=== PATIENT | female | born 1945 | race Caucasian/White ===

== ENCOUNTER 2017-12-14 17:23 | Emergency (ER) | payer MEDICARE, OTHER ==
[2017-12-14 19:17] LABS: ABS Basophils 0 10^3/ul (0-0.2); ABS Eosinophils 0 10^3/ul (0-0.6); ABS Lymphocytes 0.5 10^3/ul (1.0-4.8); ABS Monocytes 0 10^3/ul (0-0.8); ABS Neutrophils 1.3 10^3/ul (1.5-7.7); ABS Nucleated RBC 0 10^3/ul; Eosinophil % 1.1 % (0-6); Hematocrit 24 % (35-47); Hemoglobin 8.4 g/dl (12.0-16.0); Lymphocyte % 28.1 % (25-47); Mean Corpuscular HGB Conc 35 g/dl (31-36); Mean Corpuscular Hemoglobin 33 pg (27-31); Mean Corpuscular Volume 95 fL (80-97); Mean Platelet Volume 8 um3 (7.4-10.4); Nucleated Red Blood Cells % 0; Platelet Count 101 10^3/ul (150-450); Red Blood Count 2.52 10^6/ul (4.0-5.4); Red Cell Distribution Width 15 % (10.5-15); White Blood Count 1.9 10^3/ul (3.5-10.8)
--- NOTE | 2017-12-14 19:22 | RAD ---
Indication: Fever. Single frontal view of the chest performed at 1909 hours was reviewed. Comparison is made with previous exam dated November 11, 2016. No mediastinal shift is noted. Heart is of normal size and configuration. Lung maza appear clear. IMPRESSION: NO ACTIVE CARDIOPULMONARY DISEASE IS NOTED.
[2017-12-14 19:31] LABS: EGFR Non-African American 91.7 (>60)
[2017-12-14 20:10] LABS: Urine Appearance Clear; Urine Blood Negative (Negative); Urine Color Yellow; Urine Ketones Negative (Negative); Urine Protein Negative (Negative); Urine Specific Gravity 1.012 (1.010-1.030); Urine Urobilinogen Negative (Negative)
[2017-12-14] MEDS ORDERED: Heparin 2 UNITS/ML IVPREMIX* 1 ML in NS 0.9% 50 ML* 1 ML IV SCH (22:00)
[2017-12-14 22:22] VITALS: BP 115/63
--- NOTE | 2017-12-14 22:51 | ED ---
Yessica Moreau Jason, scribed for Rey San MD on 12/14/17 at 1903 . HPI Febrile Illness - HPI Summary HPI Summary: This patient is a 71 year old F presenting to [facility] accompanied by with a chief complaint of fever since today. The patient states that her temperature arose to 100.9 degrees and since she is on chemotherapy for pancreatic cancer she was advised by her Oncologist on-call to go to the ED. Patient reports mild CONNOR, nasal discharge, and sinus congestion. Patient denies vomiting, urinary sx, cough, or sick contacts.. - History of Current Complaint Chief Complaint: EDFever Time Seen by Provider: 12/14/17 18:29 Hx Obtained From: Patient Onset/Duration: Still Present Timing: Constant Initial Severity: Mild Current Severity: None Pain Intensity: 0 Pain Scale Used: 0-10 Numeric Aggravating Factors: Nothing Alleviating Factors: Nothing Associated Signs and Symptoms: Negative, Other: - Patient reports mild CONNOR, nasal discharge, and sinus congestion. Patient denies vomiting, and urinary sx. - Risk Factors Serious Bacterial Infection Risk Factors: Chemotherapy - Additional Pertinent History Primary Care Physician: [id number] - Allergy/Home Medications Allergies/Adverse Reactions: Allergies Allergy/AdvReac Type Severity Reaction Status Date / Time No Known Allergies Allergy Verified 09/14/17 10:40 PMH/Surg Hx/FS Hx/Imm Hx Previously Healthy: No Endocrine/Hematology History: Denies: Hx Diabetes Cardiovascular History: Denies: Hx Hypertension GI History: Reports: Other GI Disorders - Pancreatic Cancer History: Denies: Hx Dialysis, Hx Renal Disease Sensory History: Reports: Hx Contacts or Glasses Opthamlomology History: Reports: Hx Contacts or Glasses - Cancer History Cancer Type, Location and Year: pancreatic - Surgical History Surgery Procedure, Year, and Place: Right ovary removed Infectious Disease History: No Infectious Disease History: Denies: Traveled Outside the [place] in Last 30 Days - Family History Known Family History: Positive: Diabetes - II Negative: Cardiac Disease - Social History Occupation: Works From/At Home Lives: With Family Alcohol Use: None Substance Use Type: Reports: None Smoking Status (MU): Never Smoked Tobacco Review of Systems Positive: Fever - 100.9 today, Other - pancreatic cancer Positive: Nasal Discharge, Other - sinus congestion Negative: Vomiting Positive: no symptoms reported Positive: Headache - mild All Other Systems Reviewed And Are Negative: Yes Physical Exam - Summary Physical Exam Summary: Appearance: Well-appearing, no distress, Well-nourished Skin: Warm, color reflects adequate perfusion Head: Normal Head/Face inspection Eyes: Conjunctiva clear ENT: Normal inspection Neck: Supple, no nodes, no JVD. Respiratory: Lungs clear, Normal breath sounds, no respiratory distress Cardio: RRR, No murmur, pulses normal, brisk capillary refill Abdomen: soft, nontender, no guarding, no rebound Bowel sounds: present Musculoskeletal: Strength Intact/ ROM intact. No calf tenderness. No edema. Neuro: Alert, muscle tone normal, facial symmetry, speech normal, sensory/motor intact Psychological: Normal Triage Information Reviewed: Yes Vital Signs On Initial Exam: Initial Vitals Temp Pulse Resp BP Pulse Ox 99 F 99 18 134/74 99 12/14/17 17:28 12/14/17 17:28 12/14/17 17:28 12/14/17 17:28 12/14/17 17:28 Vital Signs Reviewed: Yes Appearance: Positive: Well-Appearing Skin: Positive: Warm, Dry Diagnostics - Vital Signs Vital Signs Temp Pulse Resp BP Pulse Ox 12/14/17 18:30 89 119/57 99 12/14/17 18:00 93 118/59 99 12/14/17 17:47 102 99 12/14/17 17:46 119/56 12/14/17 17:28 99 F 99 18 134/74 99 - Laboratory Lab Results: Lab Results 12/14/17 12/14/17 12/14/17 Range/Units 19:02 19:02 19:02 WBC 1.9 L (3.5-10.8) 10^3/ul RBC 2.52 L (4.0-5.4) 10^6/ul Hgb 8.4 L (12.0-16.0) g/dl Hct 24 L (35-47) % MCV 95 (80-97) fL MCH 33 H (27-31) pg MCHC 35 (31-36) g/dl RDW 15 (10.5-15) % Plt Count 101 L (150-450) 10^3/ul MPV 8 (7.4-10.4) um3 Neut % (Auto) 67.8 (38-83) % Lymph % (Auto) 28.1 (25-47) % Lee % (Auto) 2.6 (1-9) % Eos % (Auto) 1.1 (0-6) % Baso % (Auto) 0.4 (0-2) % Absolute Neuts (auto) 1.3 L (1.5-7.7) 10^3/ul Absolute Lymphs (auto) 0.5 L (1.0-4.8) 10^3/ul Absolute Monos (auto) 0 (0-0.8) 10^3/ul Absolute Eos (auto) 0 (0-0.6) 10^3/ul Absolute Basos (auto) 0 (0-0.2) 10^3/ul Absolute Nucleated RBC 0 10^3/ul Nucleated RBC % 0 Sodium 135 (133-145) mmol/L Potassium 3.9 (3.5-5.0) mmol/L Chloride 103 (101-111) mmol/L Carbon Dioxide 26 (22-32) mmol/L Anion Gap 6 (2-11) mmol/L BUN 17 (6-24) mg/dL Creatinine 0.64 (0.51-0.95) mg/dL Est GFR ( Amer) 118.0 (>60) Est GFR (Non-Af Amer) 91.7 (>60) BUN/Creatinine Ratio 26.6 H (8-20) Glucose 143 H (70-100) mg/dL Lactic Acid 0.5 (0.5-2.0) mmol/L Calcium 8.3 L (8.6-10.3) mg/dL Total Bilirubin 1.00 (0.2-1.0) mg/dL AST 21 (13-39) U/L ALT 22 (7-52) U/L Alkaline Phosphatase 168 H (34-104) U/L Total Protein 5.3 L (6.4-8.9) g/dL Albumin 3.3 (3.2-5.2) g/dL Globulin 2.0 (2-4) g/dL Albumin/Globulin Ratio 1.7 (1-3) Urine Color Urine Appearance Urine pH (5-9) Ur Specific [place] (1.010-1.030) Urine Protein (Negative) Urine Ketones (Negative) Urine Blood (Negative) Urine Nitrate (Negative) Urine Bilirubin (Negative) Urine Urobilinogen (Negative) Ur Leukocyte Esterase (Negative) Urine WBC (Auto) (Absent) Urine RBC (Auto) (Absent) Ur Squamous Epith Cells (Absent) Urine Bacteria (Absent) Urine Glucose (Negative) Influenza A (Rapid) (Negative) Influenza B (Rapid) (Negative) 12/14/17 12/14/17 Range/Units 19:18 19:50 WBC (3.5-10.8) 10^3/ul RBC (4.0-5.4) 10^6/ul Hgb (12.0-16.0) g/dl Hct (35-47) % MCV (80-97) fL MCH (27-31) pg MCHC (31-36) g/dl RDW (10.5-15) % Plt Count (150-450) 10^3/ul MPV (7.4-10.4) um3 Neut % (Auto) (38-83) % Lymph % (Auto) (25-47) % Lee % (Auto) (1-9) % Eos % (Auto) (0-6) % Baso % (Auto) (0-2) % Absolute Neuts (auto) (1.5-7.7) 10^3/ul Absolute Lymphs (auto) (1.0-4.8) 10^3/ul Absolute Monos (auto) (0-0.8) 10^3/ul Absolute Eos (auto) (0-0.6) 10^3/ul Absolute Basos (auto) (0-0.2) 10^3/ul Absolute Nucleated RBC 10^3/ul Nucleated RBC % Sodium (133-145) mmol/L Potassium (3.5-5.0) mmol/L Chloride (101-111) mmol/L Carbon Dioxide (22-32) mmol/L Anion Gap (2-11) mmol/L BUN (6-24) mg/dL Creatinine (0.51-0.95) mg/dL Est GFR ( Amer) (>60) Est GFR (Non-Af Amer) (>60) BUN/Creatinine Ratio (8-20) Glucose (70-100) mg/dL Lactic Acid (0.5-2.0) mmol/L Calcium (8.6-10.3) mg/dL Total Bilirubin (0.2-1.0) mg/dL AST (13-39) U/L ALT (7-52) U/L Alkaline Phosphatase (34-104) U/L Total Protein (6.4-8.9) g/dL Albumin (3.2-5.2) g/dL Globulin (2-4) g/dL Albumin/Globulin Ratio (1-3) Urine Color Yellow Urine Appearance Clear Urine pH 7.0 (5-9) Ur Specific [place] 1.012 (1.010-1.030) Urine Protein Negative (Negative) Urine Ketones Negative (Negative) Urine Blood Negative (Negative) Urine Nitrate Negative (Negative) Urine Bilirubin Negative (Negative) Urine Urobilinogen Negative (Negative) Ur Leukocyte Esterase 2+ H (Negative) Urine WBC (Auto) 2+(11-20/hpf) H (Absent) Urine RBC (Auto) Trace(0-2/hpf) (Absent) Ur Squamous Epith Cells Present H (Absent) Urine Bacteria Absent (Absent) Urine Glucose Negative (Negative) Influenza A (Rapid) Negative (Negative) Influenza B (Rapid) Negative (Negative) Result Diagrams: 12/14/17 19:02 12/14/17 19:02 Lab Statement: Any lab studies that have been ordered have been reviewed, and results considered in the medical decision making process. - Radiology CXR Radiology Interpretation Completed By: Radiologist - CXR reveals, per radiologist, NO ACTIVE CARDIOPULMONARY DISEASE IS NOTED. ED physician has reviewed this radiology report. Course/Dx - Course Course Of Treatment: Pt afebrile with no antipyretics given. Pt's absolute neutrophil count is 1.3. CXR reveals, per radiologist, NO ACTIVE CARDIOPULMONARY DISEASE IS NOTED. Influenza A and B test is negative. Assessment/Plan: We discussed patient care with Dr. Verma (oncologist) and they recommended the patient be discharged. Patient will be discharged and follow up from Dr. Ross (oncologist). The patient is agreeable with this plan. - Febrile Illness Differential Diagnoses: Bacteremia, Pneumonia, Sepsis, Viremia - Diagnoses Provider Diagnoses: Viral illness - Provider Notifications Discussed Care Of Patient With: Eliceo Verma - Oncologist Time Discussed With Above Provider: 21:20 Instructed by Provider To: Other - Discharge patient home if she is stable. Discharge - Discharge Plan Condition: Good Disposition: HOME Patient Education Materials: Viral Syndrome (ED) Referrals: No Primary Care Phys,NOPCP [Primary Care Provider] - Mulugeta Ross MD [Medical Doctor] - 3 Days The documentation as recorded by the Yessica garcia Jason accurately reflects the service I personally performed and the decisions made by me, Rey San MD.
== END 2017-12-14 22:31 | disposition home or self-care (01) ==
LOC: ED 17:23
DX: B34.9 Viral infection, unspecified (principal); C25.9 Malignant neoplasm of pancreas, unspecified
CPT/HCPCS: 36415; 71045; 80053; 81003; 81015; 83605; 85025; 87040; 87086; 87502; 99284; J1642

== ENCOUNTER 2018-01-15 21:10 | Inpatient (IN) | payer MEDICARE, OTHER ==
[2018-01-15] MEDS ORDERED: NS 0.9% 1000 ML* 1,000 ML IV ONE (22:34)
[2018-01-15] MEDS ORDERED: Acetaminophen TAB* 325 MG PO ONE (22:34)
[2018-01-15] MEDS ORDERED: Acetaminophen TAB* 325 MG ONE (23:07)
[2018-01-16 00:04] LABS: ABS Neutrophils 0.5 10^3/ul (1.5-7.7)
[2018-01-16 00:07] LABS: EGFR Non-African American 67.8 (>60)
[2018-01-16 00:30] LABS: ABS Basophils 0 10^3/ul (0-0.2); ABS Eosinophils 0 10^3/ul (0-0.6); ABS Lymphocytes 0.7 10^3/ul (1.0-4.8); ABS Monocytes 0.1 10^3/ul (0-0.8); ABS Nucleated RBC 0 10^3/ul; Eosinophil % 1.3 % (0-6); Hematocrit 27 % (35-47); Hemoglobin 9.3 g/dl (12.0-16.0); Lymphocyte % 54.9 % (25-47); Mean Corpuscular HGB Conc 35 g/dl (31-36); Mean Corpuscular Hemoglobin 33 pg (27-31); Mean Corpuscular Volume 94 fL (80-97); Mean Platelet Volume 8 um3 (7.4-10.4); Nucleated Red Blood Cells % 0; Platelet Count 69 10^3/ul (150-450); Red Blood Count 2.85 10^6/ul (4.0-5.4); Red Cell Distribution Width 14 % (10.5-15); White Blood Count 1.4 10^3/ul (3.5-10.8)
[2018-01-16 00:34] LABS: INR 1.01 (0.77-1.02)
[2018-01-16] MEDS ORDERED: Piperacillin/Tazobac ADVAN(*) 3.375 GM in NS 0.9% 100 ML* 100 ML IVPB ONE (00:35)
[2018-01-16] MEDS ORDERED: Vancomycin(*) 1,000 MG in NS 0.9% 250 ML* 250 ML IVPB ONE (00:35)
[2018-01-16] MEDS ORDERED: Acetaminophen TAB* 325 MG PO PRN (00:51)
[2018-01-16] MEDS ORDERED: Melatonin (NF) 3 MG TAB PO PRN (00:51)
[2018-01-16] MEDS ORDERED: traMADol TAB* 50 MG PO PRN (00:52)
[2018-01-16] MEDS ORDERED: Ondansetron INJ* 2 MG/ML VIAL IV PRN (00:52)
--- NOTE | 2018-01-16 00:58 | ED ---
Sanjuana Moreau Edward, scribed for Yuri Harris MD on 01/15/18 at 2225 . HPI Febrile Illness - HPI Summary HPI Summary: 72 y/o female presents to the ED c/o fever at around 16:00 today, high of 101.5 at around 17:30 this afternoon. Denies nausea. Associated sx: one side of nostril "plugged" but pt states she gets blood clots often, sinus pressure. PMHx pancreatic CA dx March 2016, currently on chemo. Pt sent to ED by Dr. Ross. Sx stent put in, ovarian removal. - History of Current Complaint Chief Complaint: EDFever Time Seen by Provider: 01/15/18 22:23 Hx Obtained From: Patient Onset/Duration: Started Hours Ago Timing: Constant Pain Intensity: 0 Aggravating Factors: Nothing Alleviating Factors: Nothing Associated Signs and Symptoms: Other: - sinus pressure - Additional Pertinent History Primary Care Physician: [id number] - Allergy/Home Medications Allergies/Adverse Reactions: Allergies Allergy/AdvReac Type Severity Reaction Status Date / Time No Known Allergies Allergy Verified 09/14/17 10:40 PMH/Surg Hx/FS Hx/Imm Hx Previously Healthy: No Endocrine/Hematology History: Denies: Hx Diabetes Cardiovascular History: Denies: Hx Hypertension GI History: Reports: Other GI Disorders - Pancreatic Cancer History: Denies: Hx Dialysis, Hx Renal Disease Sensory History: Reports: Hx Contacts or Glasses Opthamlomology History: Reports: Hx Contacts or Glasses - Cancer History Cancer Type, Location and Year: pancreatic and ovarian, dx March 2016 - Surgical History Surgery Procedure, Year, and Place: Right ovary removed Infectious Disease History: No Infectious Disease History: Denies: Traveled Outside the [place] in Last 30 Days - Family History Known Family History: Positive: Diabetes - II Negative: Cardiac Disease - Social History Alcohol Use: None Hx Substance Use: No Substance Use Type: Reports: None Hx Tobacco Use: No Smoking Status (MU): Never Smoked Tobacco Review of Systems Positive: Fever Eyes: Negative ENT: Other - sinus pressure Cardiovascular: Negative Respiratory: Negative Gastrointestinal: Negative Genitourinary: Negative Musculoskeletal: Negative Skin: Negative Neurological: Negative Psychological: Normal All Other Systems Reviewed And Are Negative: Yes Physical Exam - Summary Physical Exam Summary: VITAL SIGNS: Reviewed. GENERAL: Patient is a well-developed and nourished female who is lying comfortable in the stretcher. Patient is not in any acute respiratory distress. HEAD AND FACE: No signs of trauma. No ecchymosis, hematomas or skull depressions. No sinus tenderness. EYES: PERRLA, EOMI x 2, No injected conjunctiva, no nystagmus. EARS: Hearing grossly intact. Ear canals and tympanic membranes are within normal limits. MOUTH: Oropharynx within normal limits. NECK: Supple, trachea is midline, no adenopathy, no JVD, no carotid bruit, no c- spine tenderness, neck with full ROM. CHEST: Symmetric, no tenderness at palpation LUNGS: Clear to auscultation bilaterally. No wheezing or crackles. CVS: Tachycardic, S1 and S2 present, no murmurs or gallops appreciated. ABDOMEN: Soft, non-tender. No signs of distention. No rebound no guarding, and no masses palpated. Bowel sounds are normal. EXTREMITIES: FROM in all major joints, no edema, no cyanosis or clubbing. NEURO: Alert and oriented x 3. No acute neurological deficits. Speech is normal and follows commands. SKIN: Dry and warm Triage Information Reviewed: Yes Vital Signs On Initial Exam: Initial Vitals Temp Pulse Resp BP Pulse Ox 99.5 F 131 16 115/76 98 01/15/18 21:17 01/15/18 21:17 01/15/18 21:17 01/15/18 21:17 01/15/18 21:17 Vital Signs Reviewed: Yes Diagnostics - Vital Signs Vital Signs Temp Pulse Resp BP Pulse Ox 01/15/18 22:24 99.3 F 01/15/18 21:17 99.5 F 131 16 115/76 98 - Laboratory Result Diagrams: 01/15/18 23:42 01/15/18 23:23 Lab Statement: Any lab studies that have been ordered have been reviewed, and results considered in the medical decision making process. - Radiology CXR Xray Interpretation: No Acute Changes Radiology Interpretation Completed By: ED Physician Re-Evaluation - Re-Evaluation 1 Re-Evaluation Time: 00:44 Comment: Discuss test results, plan of care Course/Dx - Course Assessment/Plan: WBC 1.4 L, Absolute Neutrophils 0.5 L. INFLUENZA A AND B NEGATIVE. CXR negative. Spoke with Dr. Montes who will admit the pt to [facility]. Pt agrees with plan. - Diagnoses Provider Diagnoses: Neutropenic fever - Provider Notifications Discussed Care Of Patient With: Onesimo Montes Time Discussed With Above Provider: 00:45 Instructed by Provider To: Admit As Inpatient Discharge - Discharge Plan Condition: Stable Disposition: ADMITTED TO [facility] Referrals: No Primary Care Phys,NOPCP [Primary Care Provider] - The documentation as recorded by the Sanjuana garcia Edward accurately reflects the service I personally performed and the decisions made by me, Yuri Harris MD.
[2018-01-16 01:13] LABS: Urine Appearance Clear; Urine Blood Negative (Negative); Urine Color Yellow; Urine Ketones Negative (Negative); Urine Protein Negative (Negative); Urine Urobilinogen Negative (Negative)
[2018-01-16] MEDS ORDERED: NS 0.9% 250 ML* 250 ML ONE (01:15)
[2018-01-16] MEDS: Cefepime 2 GM in Dextrose(*) 2 GM/50 ML BAG IV SCH ×3 (01:25→16:22)
[2018-01-16] MEDS: NS 0.9% 1000 ML* 1,000 ML IV SCH ×3 (02:07→20:47)
[2018-01-16] MEDS: Omeprazole CAP* 20 MG PO SCH (04:41)
--- NOTE | 2018-01-16 05:13 | HP ---
H&P (Free Text) History and Physical: PCP: Gisell Ross MD Date/Time: 01/16/2018 0045 CC: fever HPI: Mrs Lazcano is a 72YO female HX of pancreatic CA on treatment with gemcitabine & abraxane last give Tuesday01/09/2018. She awoke Tuesday AM with increased fatigue which persisted throughout the day, developing a fever of 101F around 1600 for which she called her oncologist who advised evaluation in the ED. She has some mild head congestion, but denies exacerbating or alleviating factors, chills, sweats, N/V, diarrhea, cough, chest congestion, headache, sore throat, earache, abdominal pain, B/U/F of urine, flank pain, chest pain, rash, open wound, or other issues. Her who is a physician's assistant commissioner heard a slight wheeze in her lung this AM which had resolved by afternoon. ED evaluation reveals neutropenia with an ANC of 0.5. She was given IV vancomycin in the ED and was ordered piperacillin/tazobactam which I D/C'd in preference of cefepime 2gm IV Q8H. She will be gonzalez-cultured and placed on neutropenic precautions. PMedHx pancreatic CA on treatment with gemcitabine & abraxane last give 01/09/2018 GERD Ambulatory Orders Metoclopramide TAB* [Reglan TAB*] 10 mg PO Q6H PRN 11/07/16 Omeprazole CAP* [Prilosec CAP* 20 MG] 20 mg PO DAILY 11/07/16 Levofloxacin TAB* [Levaquin TAB*] 750 mg PO DAILY #10 tab 11/11/16 Loperamide CAP* [Imodium CAP*] 2 mg PO .SEE DIRECTIONS PRN #0 cap 11/11/16 Potassium Chlor TAB* [Potassium Chlor TAB 20 MEQ*] 40 meq PO DAILY #60 tab.er Magnesium Oxide TAB* [MagOx 400 TAB*] 400 mg PO BID 01/16/18 Allergies No Known Allergies Allergy (Verified 09/14/17 10:40) PSurgHx R oophorectomy port placement biliary stent placement SocHx: no tobacco, alcohol, or recreational drugs; volunteer with [employer]; , lives with her ; full code status FamHx: Mother: age 88 2nd leukemia; Father passed at 75 of unknown cause. ROS: as above, otherwise reviewed and all were negative vitals: Vital Signs Temp 36.8 C 01/16/18 02:24 Pulse 92 01/16/18 02:24 Resp 16 01/16/18 02:26 BP 121/78 01/16/18 02:24 Pulse Ox 100 01/16/18 02:24 Intake & Output 01/15/18 01/15/18 01/16/18 11:59 23:59 11:59 Intake Total 1000 0 Balance 1000 0 Weight 62.142 kg 61.87 kg Intake: IV Fluids 1000 Oral 0 Constitutional: NAD, normally developed, well-nourished elderly white female HEENM: atraumatic; sclera/conjunctiva: anicteric/clear; hearing: clinically intact; oropharynx: clear, mucosa moist Neck: soft tissue: no nuchal rigidity; thyroid: normal Pulmonary: clear to auscultation bilaterally, good aeration, no accessory muscle use CV: RR/RR, normal S1S2, no carotid bruit, no jugular venous distention, 2+ B DP/ PT, no edema Abdominal: soft, non-distended, non-tender, no rebound/guarding/rigidity, normoactive bowel sounds, no hepatosplenomegaly or masses, no costovertebral angle tenderness Musculoskeletal: general: grossly intact, no tenderness to palpation Integumental: normal appearance and texture of exposed skin Psychiatric orientation: AA&O to PPS affect: calm mood: cooperative/pleasant eye contact: good content: reliable responses: timely insight: good Testing: Lab Results 01/15/18 01/15/18 01/15/18 Range/Units 23:23 23:23 23:42 WBC 1.4 L (3.5-10.8) 10^3/ul RBC 2.85 L (4.0-5.4) 10^6/ul Hgb 9.3 L (12.0-16.0) g/dl Hct 27 L (35-47) % MCV 94 (80-97) fL MCH 33 H (27-31) pg MCHC 35 (31-36) g/dl RDW 14 (10.5-15) % Plt Count 69 L (150-450) 10^3/ul MPV 8 (7.4-10.4) um3 Neut % (Auto) 36.2 L (38-83) % Lymph % (Auto) 54.9 H (25-47) % [place] % (Auto) 6.3 (0-7) % Eos % (Auto) 1.3 (0-6) % Baso % (Auto) 1.3 (0-2) % Absolute Neuts (auto) 0.5 L* (1.5-7.7) 10^3/ul Absolute Lymphs (auto) 0.7 L (1.0-4.8) 10^3/ul Absolute Monos (auto) 0.1 (0-0.8) 10^3/ul Absolute Eos (auto) 0 (0-0.6) 10^3/ul Absolute Basos (auto) 0 (0-0.2) 10^3/ul Absolute Nucleated RBC 0 10^3/ul Nucleated RBC % 0 INR (Anticoag Therapy) 1.01 (0.77-1.02) APTT 36.2 (26.0-36.3) seconds Sodium 130 L (133-145) mmol/L Potassium 3.9 (3.5-5.0) mmol/L Chloride 99 L (101-111) mmol/L Carbon Dioxide 25 (22-32) mmol/L Anion Gap 6 (2-11) mmol/L BUN 26 H (6-24) mg/dL Creatinine 0.83 (0.51-0.95) mg/dL Est GFR ( Amer) 87.2 (>60) Est GFR (Non-Af Amer) 67.8 (>60) BUN/Creatinine Ratio 31.3 H (8-20) Glucose 192 H (70-100) mg/dL Lactic Acid (0.5-2.0) mmol/L Calcium 9.3 (8.6-10.3) mg/dL Total Bilirubin 0.90 (0.2-1.0) mg/dL AST 21 (13-39) U/L ALT 24 (7-52) U/L Alkaline Phosphatase 185 H (34-104) U/L Total Protein 6.1 L (6.4-8.9) g/dL Albumin 3.7 (3.2-5.2) g/dL Globulin 2.4 (2-4) g/dL Albumin/Globulin Ratio 1.5 (1-3) Urine Color Urine Appearance Urine pH (5-9) Ur Specific [place] (1.010-1.030) Urine Protein (Negative) Urine Ketones (Negative) Urine Blood (Negative) Urine Nitrate (Negative) Urine Bilirubin (Negative) Urine Urobilinogen (Negative) Ur Leukocyte Esterase (Negative) Urine Glucose (Negative) Urine Ascorbic Acid (Negative) Influenza A (Rapid) (Negative) Influenza B (Rapid) (Negative) 01/15/18 01/15/18 01/16/18 Range/Units 23:42 23:53 00:43 WBC (3.5-10.8) 10^3/ul RBC (4.0-5.4) 10^6/ul Hgb (12.0-16.0) g/dl Hct (35-47) % MCV (80-97) fL MCH (27-31) pg MCHC (31-36) g/dl RDW (10.5-15) % Plt Count (150-450) 10^3/ul MPV (7.4-10.4) um3 Neut % (Auto) (38-83) % Lymph % (Auto) (25-47) % [place] % (Auto) (0-7) % Eos % (Auto) (0-6) % Baso % (Auto) (0-2) % Absolute Neuts (auto) (1.5-7.7) 10^3/ul Absolute Lymphs (auto) (1.0-4.8) 10^3/ul Absolute Monos (auto) (0-0.8) 10^3/ul Absolute Eos (auto) (0-0.6) 10^3/ul Absolute Basos (auto) (0-0.2) 10^3/ul Absolute Nucleated RBC 10^3/ul Nucleated RBC % INR (Anticoag Therapy) (0.77-1.02) APTT (26.0-36.3) seconds Sodium (133-145) mmol/L Potassium (3.5-5.0) mmol/L Chloride (101-111) mmol/L Carbon Dioxide (22-32) mmol/L Anion Gap (2-11) mmol/L BUN (6-24) mg/dL Creatinine (0.51-0.95) mg/dL Est GFR ( Amer) (>60) Est GFR (Non-Af Amer) (>60) BUN/Creatinine Ratio (8-20) Glucose (70-100) mg/dL Lactic Acid 0.8 (0.5-2.0) mmol/L Calcium (8.6-10.3) mg/dL Total Bilirubin (0.2-1.0) mg/dL AST (13-39) U/L ALT (7-52) U/L Alkaline Phosphatase (34-104) U/L Total Protein (6.4-8.9) g/dL Albumin (3.2-5.2) g/dL Globulin (2-4) g/dL Albumin/Globulin Ratio (1-3) Urine Color Yellow Urine Appearance Clear Urine pH 5.0 (5-9) Ur Specific [place] 1.020 (1.010-1.030) Urine Protein Negative (Negative) Urine Ketones Negative (Negative) Urine Blood Negative (Negative) Urine Nitrate Negative (Negative) Urine Bilirubin Negative (Negative) Urine Urobilinogen Negative (Negative) Ur Leukocyte Esterase Negative (Negative) Urine Glucose Negative (Negative) Urine Ascorbic Acid * H (Negative) Influenza A (Rapid) Negative (Negative) Influenza B (Rapid) Negative (Negative) CXR, personally reviewed: no acute process, port L chest Impression: 72F HX pancreatic CA on treatment with gemcitabine & abraxane last give Tuesday01/09/2018 presents with neutropenic fever DIAGNOSIS & PLAN Primary neutropenic fever : blood, sputum, & urine CXs : IVFs : cefepime 2gm IV Q8H : neutropenic precautions : supportive care Secondary pancreatic CA : continue management per oncology Admission Rational: inpatient for neutropenic fever at very high risk of morbidity/mortality; inappropriate for outpatient setting DVTp: SCDs & heparin SQ Code Status: full HCP:
[2018-01-16 05:17] LABS: EGFR Non-African American 79.9 (>60)
[2018-01-16 05:49] LABS: ABS Basophils 0 10^3/ul (0-0.2); ABS Eosinophils 0 10^3/ul (0-0.6); ABS Monocytes 0.1 10^3/ul (0-0.8); ABS Neutrophils 0.4 10^3/ul (1.5-7.7); ABS Nucleated RBC 0 10^3/ul; Eosinophil % 1.1 % (0-6); Hematocrit 24 % (35-47); Hemoglobin 8.4 g/dl (12.0-16.0); Lymphocyte % 64.9 % (25-47); Mean Corpuscular HGB Conc 35 g/dl (31-36); Mean Corpuscular Hemoglobin 32 pg (27-31); Mean Corpuscular Volume 94 fL (80-97); Mean Platelet Volume 8 um3 (7.4-10.4); Nucleated Red Blood Cells % 0; Platelet Count 57 10^3/ul (150-450); Red Blood Count 2.58 10^6/ul (4.0-5.4); Red Cell Distribution Width 14 % (10.5-15); White Blood Count 1.6 10^3/ul (3.5-10.8)
--- NOTE | 2018-01-16 07:39 | RAD ---
INDICATION: Fever COMPARISON: Most recent comparison chest x-ray dated December 14, 2017 TECHNIQUE: Single AP portable view of the chest was obtained. FINDINGS: Image quality is compromised due to the relative inferiority of a portable chest x-ray. There is a left subclavian vein Mediport with the tip terminating at the upper portion of the superior vena cava. The heart and mediastinum exhibit normal size and contour. The lungs are grossly clear. There is no evidence of a large pleural effusion. Visualized bones are normal for the patient's age. IMPRESSION: 1. No radiographic evidence for acute cardiopulmonary abnormality on this portable chest x-ray. 2. The left subclavian vein Mediport terminates at the high superior vena cava. Please correlate to ability to aspirate and inject the Mediport clinically.
[2018-01-16] MEDS: Docusate CAP* 100 MG PO SCH ×2 (09:52→20:47)
--- NOTE | 2018-01-16 11:28 | PN ---
Progress Note - Progress Note Date of Service: 01/16/18 SOAP: Subjective: []She feels fine. No abdominal pain. Fever last night better. Has been tolerating therapy but with frequent does delays for low counts. No focal symptoms of infection. Acetaminophen (Tylenol Tab*) 650 mg PO Q6H PRN PRN Reason: FEVER/PAIN Docusate Sodium (Colace Cap*) 200 mg PO BID [facility] Last Admin: 01/16/18 09:52 Dose: 200 mg Heparin Sodium (Porcine) (Heparin Vial(*)) 5,000 units SUBCUT Q8HR [facility] Cefepime HCl (Maxipime 2 Gm In Dextrose Duplex (*)) 2 gm in 50 mls @ 100 mls/ hr IV Q8H [facility] Last Admin: 01/16/18 09:52 Dose: 100 mls/hr Sodium Chloride (Ns 0.9% 1000 Ml*) 1,000 mls @ 125 mls/hr IV PER RATE [facility] Last Admin: 01/16/18 09:53 Dose: 125 mls/hr Melatonin (Melatonin (Nf)) 3 mg PO BEDTIME PRN; Protocol PRN Reason: Sleep Omeprazole (Prilosec Cap*) 20 mg PO DAILY@0600 [facility] Last Admin: 01/16/18 04:41 Dose: 20 mg Ondansetron HCl (Zofran Inj*) 4 mg IV Q6H PRN PRN Reason: NAUSEA Tramadol HCl (Ultram*) 50 mg PO Q6H PRN PRN Reason: PAIN Objective: [] Vital Signs Temp Pulse Resp BP Pulse Ox 98.6 F 103 18 111/64 98 01/16/18 11:01 01/16/18 11:01 01/16/18 11:01 01/16/18 11:01 01/16/18 11:01 HEENT pale, no moral lesions, no dental disease CTA RRR S1S2 +BS, NT, ND and no masses Ext - Tr edema no skin lesions CXR and UA negative Flu negative BC not reported yet Assessment: []72 year old on second line therapy with Abraxane/Gemcitabine for metastatic pancreatic cancer. She has had frequent dose delays for cytopenias and no NF. Had been due today. Plan: []1. NF. Continue Cefepime and follow counts. Neupogen if not improving tomorrow. 2. Re-check CT scan and CA 27-29. If cancer stable or responding will continue chemotherapy on once every other week.
[2018-01-16] MEDS ORDERED: Iohexol 300* (CONTRAST) 10 ML SDV IV ONE (11:47)
--- NOTE | 2018-01-16 15:49 | RAD ---
INDICATION: Pancreatic and ovarian cancer. Neutropenic fever. COMPARISON: October 26, 2017 PET/CT. January 15, 2018 chest radiograph. September 14, 2017 CT. TECHNIQUE: Multidetector CT images were obtained from the lung apices to the ischial tuberosities with 83 mL Omnipaque 300 IV contrast. Oral contrast administered. CHEST REPORT: Minimal LEFT greater than RIGHT basilar atelectasis. No alveolar consolidation concerning for pneumonia or suspicious focal pulmonary lesions. Negative for pleural effusions. Negative for thoracic lymphadenopathy. Tip of LEFT chest port at level of superior vena cava. Negative for cardiomegaly. Physiologic small volume of pericardial fluid. Normal diameter thoracic aorta. Mild anterior compression deformity of the T10 vertebral body is chronic. Multiple osseous hemangiomas of the thoracic spine noted. No suspicious osseous lesions of the thorax evident. CHEST IMPRESSION: 1. No pulmonary inflammatory process evident. 2. No evidence for thoracic metastatic disease. ABDOMEN PELVIS REPORT: 2.5 cm AP by 3.9 cm transverse hypodense mass at the pancreatic body increased from 2.0 x 3.8 cm previously. Associated advanced atrophy of the pancreatic tail. Metallic biliary stent in place with associated pneumobilia. No conspicuous focal liver lesions evident. Mildly increased upper normal size spleen. 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 Normal opacification of the superior mesenteric, splenic, and portal veins. No CT abnormality of the upper GI, small bowel, appendix visualized medial to the cecum, or colon evident. Negative for ascites, free air, hernias. Normal adrenal glands. Symmetric nephrograms and pyelograms. No suspicious renal lesions or hydronephrosis. Unremarkable nondilated ureters and partially distended urinary bladder. Partially calcified fibroid at the LEFT uterine fundus. Unremarkable adnexal regions. Normal diameter abdominal aorta and iliac arteries with mild atherosclerotic plaque. Physiologic partial distention of the IVC. Negative for suspicious osseous lesions. ABDOMEN PELVIS IMPRESSION: 1. Mild interval enlargement of hypodense mass at the pancreatic body. Mild increase in intrahepatic biliary dilatation. Metallic biliary stent remains in place. 2. 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 Normal opacification of the superior mesenteric, splenic, and portal veins. 3. Negative for ascites. 4. Negative for lymphadenopathy.
[2018-01-17] MEDS: Cefepime 2 GM in Dextrose(*) 2 GM/50 ML BAG IV SCH ×2 (01:08→09:22)
[2018-01-17] MEDS: Omeprazole CAP* 20 MG PO SCH (05:48)
[2018-01-17] MEDS ORDERED: Heparin VIAL(*) 5000 UNITS/ML VIAL (FIVE THOUSAND) SUBCUT SCH (06:00)
[2018-01-17 06:11] LABS: ABS Basophils 0 10^3/ul (0-0.2); ABS Eosinophils 0.1 10^3/ul (0-0.6); ABS Lymphocytes 0.9 10^3/ul (1.0-4.8); ABS Monocytes 0.2 10^3/ul (0-0.8); ABS Neutrophils 0.4 10^3/ul (1.5-7.7); ABS Nucleated RBC 0 10^3/ul; Eosinophil % 3.8 % (0-6); Hematocrit 21 % (35-47); Hemoglobin 7.5 g/dl (12.0-16.0); Lymphocyte % 57.7 % (25-47); Mean Corpuscular HGB Conc 36 g/dl (31-36); Mean Corpuscular Hemoglobin 33 pg (27-31); Mean Corpuscular Volume 93 fL (80-97); Mean Platelet Volume 8 um3 (7.4-10.4); Nucleated Red Blood Cells % 0.2; Platelet Count 50 10^3/ul (150-450); Red Blood Count 2.25 10^6/ul (4.0-5.4); Red Cell Distribution Width 15 % (10.5-15); White Blood Count 1.5 10^3/ul (3.5-10.8)
[2018-01-17 06:14] LABS: EGFR Non-African American 89.9 (>60)
[2018-01-17] MEDS: Docusate CAP* 100 MG PO SCH (10:28)
[2018-01-17] MEDS: Spironolactone TAB* 25 MG PO SCH ×2 (11:37→20:01)
[2018-01-17] MEDS ORDERED: FILGRASTIM-SNDZ* 300 MCG/0.5 ML SYRINGE SUBCUT SCH (12:00)
[2018-01-17] MEDS ORDERED: FILGRASTIM-SNDZ* 480 MCG/0.8 ML SYRINGE SUBCUT SCH (12:00)
[2018-01-17] MEDS: NS 0.9% 50 ML* 50 ML with Cefepime(*) 2 GM IVPB SCH ×2 (16:05)
[2018-01-18] MEDS: NS 0.9% 50 ML* 50 ML with Cefepime(*) 2 GM IVPB SCH ×4 (00:33→08:53)
[2018-01-18] MEDS: Omeprazole CAP* 20 MG PO SCH (06:14)
[2018-01-18 07:01] LABS: Hematocrit 23 % (35-47); Hemoglobin 7.9 g/dl (12.0-16.0); Mean Corpuscular HGB Conc 35 g/dl (31-36); Mean Corpuscular Hemoglobin 33 pg (27-31); Mean Corpuscular Volume 94 fL (80-97); Mean Platelet Volume 9 um3 (7.4-10.4); Platelet Count 69 10^3/ul (150-450); Red Blood Count 2.43 10^6/ul (4.0-5.4); Red Cell Distribution Width 15 % (10.5-15); White Blood Count 3.7 10^3/ul (3.5-10.8)
[2018-01-18 07:02] LABS: ABS Basophils 0 10^3/ul (0-0.2); ABS Eosinophils 0.2 10^3/ul (0-0.6); ABS Lymphocytes 1.2 10^3/ul (1.0-4.8); ABS Monocytes 0.4 10^3/ul (0-0.8); ABS Nucleated RBC 0 10^3/ul; Eosinophil % 4.1 % (0-6); Lymphocyte % 31.2 % (25-47); Nucleated Red Blood Cells % 0.1
[2018-01-18] MEDS ORDERED: Loperamide CAP* 2 MG PO PRN (07:42)
[2018-01-18] MEDS ORDERED: Metoclopramide TAB* 10 MG PO PRN (07:42)
[2018-01-18] MEDS ORDERED: FILGRASTIM-SNDZ* 300 MCG/0.5 ML SYRINGE SUBCUT STA (07:42)
--- NOTE | 2018-01-18 07:53 | DS ---
- Discharge Summary ADMIT DATE: 01/15/18 DISCHARGE DATE: 01/18/18 DISCHARGE DIAGNOSIS: 1. neutropenic fever 2. metastatic pancreatic cancer DISCHARGE MEDICATIONS: Home Medications Medication Instructions Recorded Confirmed Type Metoclopramide TAB* [Reglan TAB*] 10 mg PO Q6H PRN 11/07/16 01/16/18 History Omeprazole CAP* [Prilosec CAP* 20 20 mg PO DAILY 11/07/16 01/16/18 History MG] Loperamide CAP* [Imodium CAP*] 2 mg PO .SEE DIRECTIONS PRN #0 cap 11/11/1601/16 Rx Magnesium Oxide TAB* [MagOx 400 400 mg PO BID 01/16/18 01/16/18 History TAB*] Spironolactone TAB* [Aldactone TAB 25 mg PO BID #60 tab 01/18/18 Rx 25 MG*] DISCHARGE FOLLOW UP: WE WILL CALL YOU WITH APPOINTMENT HOSPITAL COURSE: Please see full admit H+P, briefly 72 yo F w metastatic pancreatic cancer on palliative gemcitabine/abraxane, with frequent delays for counts, presenting with neutropenic fevers. She was treated with vanco/cefepime, and all cultures are negative to date. She is no longer neutropenic with the addition of neupogen and will get one more dose today prior to discharge. She will likely have chemotherapy on Tuesday but we will call her to confirm. Her CT scan showed essentially stable disease and her CA 19-9 is pending. >30 mins spent, >50% in face to face counseling
[2018-01-18] MEDS ORDERED: Omeprazole CAP* 20 MG PO SCH (09:00)
[2018-01-18] MEDS ORDERED: Magnesium Oxide TAB* 400 MG PO SCH (09:00)
[2018-01-18] MEDS ORDERED: Potassium Chlor TAB* 20 MEQ TAB.ER PO SCH ×2 (09:00)
[2018-01-18] MEDS: Spironolactone TAB* 25 MG PO SCH (09:15)
[2018-01-18 09:54] VITALS: BP 106/54
== END 2018-01-18 10:00 | disposition home or self-care (01) | DRG 809 ==
LOC: ED 21:10 → MED 01-16 00:48
PROVIDERS: ADMIT Hospitalist; ATTEND Internal Medicine Hematology & Oncology
DX: D70.9 Neutropenia, unspecified (principal); C25.9 Malignant neoplasm of pancreas, unspecified; C79.9 Secondary malignant neoplasm of unspecified site; R50.81 Fever presenting with conditions classified elsewhere; K21.9 Gastro-esophageal reflux disease without esophagitis; Z79.899 Other long term (current) drug therapy; Z80.6 Family history of leukemia
CPT/HCPCS: 36415; 71045; 71260; 74177; 80048; 80053; 81003; 83605; 85025; 85610; 85730; 86300; 86301; 87040; 87086; 87502; 99233; 99239; A9270-GY; J0692; J1642; J2543; J3370; Q5101 ZA; Q9967

== ENCOUNTER 2018-02-09 12:04 | Day surgery (SDC) | payer MEDICARE, OTHER ==
[~2018-02-09 12:04] MED LIST: Buffered Lidocaine 0.9% SYRIN* 5 ML/SYR SYRINGE INTRADERM ONE; DiMENhydriNATE IV* 50 MG/ML VIAL IV PUSH PRN; Famotidine IV* 10 MG/ML 2 ML (20 mg) IV ONE; Morphine INJ* 2 MG/ML 1 ML CARPUJECT IV PRN; Naloxone* 0.4 MG/ML 1 ML VIAL IV PRN; PROCHLORPERAZINE INJ 5 MG/ML 2 ML VIAL IV PRN; Scopolamine 1.5 mg* PATCH TRANSDERM PRN; fentaNYL* 50 MCG/ML 2 ML VIAL (100 MCG VIAL) IV PRN; oxyCODONE/Acetamin 5/325 MG* TAB PO PRN
[2018-02-09] MEDS ORDERED: Buffered Lidocaine 0.9% SYRIN* 5 ML/SYR SYRINGE ONE (12:17)
[2018-02-09] MEDS ORDERED: Famotidine IV* 10 MG/ML 2 ML (20 mg) ONE (12:17)
[2018-02-09] MEDS ORDERED: ceFAZolin 2 GM PREMIX (*) 2 GM/50 ML BAG IVPB ONE (12:17)
[2018-02-09] MEDS ORDERED: KETAMINE HCL* 50 MG/ML 10 ML VIAL ONE (12:32)
[2018-02-09] MEDS ORDERED: Midazolam* 1 MG/ML 5 ML VIAL (5 MG) ONE (12:32)
[2018-02-09] MEDS ORDERED: Atracurium* 10 MG/ML 10 ML VIAL ONE (12:32)
[2018-02-09] MEDS ORDERED: fentaNYL* 50 MCG/ML 2 ML VIAL (100 MCG VIAL) ONE ×2 (12:32→15:09)
[2018-02-09] MEDS ORDERED: Bupivacaine 0.25% SDV* 30 ML ONE (13:05)
[2018-02-09] MEDS ORDERED: Glycopyrrolate IV* 0.2 MG/ML 1 ML VIAL ONE (13:38)
[2018-02-09] MEDS ORDERED: Propofol* 10 MG/ML 20 ML BTL IV PUSH ONE (13:38)
[2018-02-09] MEDS ORDERED: PROCHLORPERAZINE INJ 5 MG/ML 2 ML VIAL ONE (13:38)
[2018-02-09] MEDS ORDERED: Neostigmine Methylsulfate* 1 MG/ML 10 ML VIAL (1 mg/ml) ONE (13:38)
[2018-02-09] MEDS ORDERED: Dexamethasone IV* 4 MG/ML 1 ML (4 MG) ONE (13:38)
[2018-02-09] MEDS ORDERED: Ondansetron INJ* 2 MG/ML VIAL ONE (13:38)
[2018-02-09] MEDS ORDERED: HYDROmorphone INJ* 1 MG/ML CARPUJECT SYRINGE ONE (14:15)
[2018-02-09 17:23] VITALS: BP 115/71
--- NOTE | 2018-02-10 05:28 | OP ---
CC: Dr. José Sorensen; Dr. Mulugeta Ross OPERATIVE REPORT: DATE OF OPERATION: 02/09/18 DATE OF : 47 SURGEON: José Sorensen MD PRODUCT CONTROL AND LOGISTICS ANALYST: Kristie Lopez NP ANESTHESIOLOGIST: José Lang MD ANESTHESIA: General anesthetic, local infiltration. PRE-OP DIAGNOSIS: Pancreatic carcinoma. POST-OP DIAGNOSIS: Pancreatic carcinoma. OPERATIVE PROCEDURE: Laparoscopy with biopsies. DESCRIPTION OF PROCEDURE: The patient was supine on the operating room table. After adequate general anesthetic, compression stockings, Celine Hugger warmer, and intravenous antibiotics, the abdomen was prepped with antiseptic, draped in a sterile fashion. Local infiltrative anesthesia was administered and a small umbilical incision was created. Blunt port cannula was placed. Insufflation was otilio d out with carbon dioxide. Additional cannulae, 5-mm left lower quadrant and left mid abdomen, were placed through small stab wounds under direct vision. Inspection of the peritoneal cavity revealed in numerable white patches that appeared thin and fibrotic. There were also some white patches on the o mentum and on the small bowel mesentery. The bowel was run from beginning to end and there were no i mplants on the bowel wall, no obvious liver metastasis. No obvious metastases in the areas of the co ace that were visible. An area of these white patches in the right lower abdominal peritoneum was bi opsied and then a portion of omentum was biopsied as well. These were sent to Pathology and neither of them showed any evidence of tumor. So, it was felt that additional biopsy would be taken from the pancreas. The gastrocolic omentum was entered and the lesser sac entered and the pancreatic mass wa s evident and biopsies were taken from this site using small biopsy forceps. These were sent fresh t o Pathology and they confirmed adequate biopsy of the pancreatic tissue. The site was suctioned. Th ere was no hemorrhage. Cannulae were removed and the umbilical fascia was closed with 0 Vicryl follo wed by 5-0 Vicryl for the skin, followed by Steri-Strips. She tolerated the procedure well, was awak e, and brought to Recovery in good condition. There were no complications, no drains. Pathologic spe cimens as above. Sponge, instrument counts were correct. Estimated blood loss 20 mL. [id number]/[facility] #: [id number]
[2018-02-12] MEDS ORDERED: Scopolamine PATCH Remove* 1 NOTE MISC PATCH OFF ONE (05:57)
== END 2018-02-09 17:51 | disposition home or self-care (01) ==
LOC: OR 12:04
PROVIDERS: ATTEND Surgery
DX: C25.0 Malignant neoplasm of head of pancreas (principal); D20.1 Benign neoplasm of soft tissue of peritoneum; Z79.899 Other long term (current) drug therapy
CPT/HCPCS: 88305; 88307; 88331; J0690; J0780; J1100; J1170; J1642; J2250; J2405; J2704; J2710; J3010

== ENCOUNTER 2018-02-10 17:25 | Inpatient (IN) | payer MEDICARE, OTHER ==
[2018-02-10] MEDS ORDERED: NS 0.9% 1000 ML* 1,000 ML IV ONE (17:46)
--- OUTSIDE RECORDS SUMMARY | 2018-02-10 17:49 | XMS REPORT ---
:1945 External Reference #:[id number] Author Organization [facility] Address [address] [address] Phone [phone] Care Team Providers Name Role Phone Mulugeta Ross MD Primary Care Physician Unavailable Payers Type Date Identification Numbers Payment Provider Subscriber Medicare Primary Policy Number: [id number] Medicare Ruthie Neno PayID: [id number] [address] [place] [address] [facility] Policy Number: [id number] [employer] Ruthie Lazcano PayID: [id number] [address] [place] [address] Problems Description No Information Social History Type Date Description Comments Smoking Patient has never smoked Allergies, Adverse Reactions, Alerts Date Description Reaction Status Severity Comments 02/06/2018 NKDA active Medications Medication Date Status Form Strength Qnty SIG Indications Ordering Provider Aldactone Active Tablets 25mg 1 by mouth Unknown /0000 every day as needed Bisacodyl Ec Active Tablets 5mg take one Unknown /0000 DR tablet by mouth once daily for constipation as needed Colace Active Capsules 100mg 1 tab by Unknown /0000 mouth 2-3 times a day as needed Senna Active Tablets 8.6mg 2 tabs by Unknown /0000 mouth 1-2 times daily as needed Magnesium Active Tablets 400mg 1 by mouth Unknown /0000 twice a day Multivitamin Active Tablets 1 by mouth Unknown Adult /0000 every day Miralax Active Packet 3350NF once a day Unknown /0000 in in the morning as needed for constipation Omeprazole Active Capsules 20mg 1 by mouth Unknown /0000 DR every day as needed Hydromorphone HCL Active Tablets 4mg take 1/2 Unknown /0000 To 1 Tablet by mouth every 4 hours if needed Spironolactone/Hy Active Tablets 25-25mg 1 by mouth Unknown drochlorothiazide /0000 every day Tylenol Active Capsules 325mg 2 tablets Unknown /0000 every 4 hours as needed for pain Imodium A-D Hx Capsules 2mg as directed Unknown /0000 Ondansetron Hx Tablets 4mg dissolve one Unknown /0000 Dispers tablet orally every 6 hours as needed for nausea. Prochlorperazine Hx Tablets 5mg 1 by mouth Unknown Maleate /0000 every 8 h as needed nausea Vital Signs Date Vital Result Comment 02/08/2018 Height 62.5 inches 5'2.50" Weight 138.00 lb Heart Rate 80 /min BP Systolic 102 mmHg BP Diastolic 64 mmHg Respiratory Rate 16 /min Body Temperature 97.5 F BMI (Body Mass Index) 24.8 kg/m2 Results Description No Information Procedures Date CPT Code Description Status 09/09/2009 13832 Biopsy Cervix, Single Or Multiple, Or Local Excision Of Completed Lesion 04/11/2009 48223 EKG Tracing & Interpretation Completed Encounters Type Date Location Provider CPT E/M Dx [facility] [place], [address] D70.9 9:07a Assmarnie smith M.D. R50.81 C25.9 Office Visit 11/07/2016 7:37a [facility] marnie [place], [address] J18.1 Tee Johnson D61.810 C25.9 Office Visit 04/11/2009 3:00p DO Not Use [place], [address] V72.31 Maggie-Ervin Johnson Plan of Care Future Appointment(s):02/17/2018 2:45 pm - NENA Reynolds at [facility]02/09/2018 3:45 pm - José Sorensen M.D. at [facility]02/08/2018 - José Sorensen M.D.C25.0 Malignant neoplasm of head of pancreas
[2018-02-10 18:23] LABS: Hematocrit 29 % (35-47); Hemoglobin 9.6 g/dl (12.0-16.0); Mean Corpuscular HGB Conc 34 g/dl (31-36); Mean Corpuscular Hemoglobin 31 pg (27-31); Mean Corpuscular Volume 92 fL (80-97); Mean Platelet Volume 7.2 um3 (7.4-10.4); Platelet Count 310 10^3/ul (150-450); Red Cell Distribution Width 16 % (10.5-15); White Blood Count 25.6 10^3/ul (3.5-10.8)
[2018-02-10 18:36] LABS: EGFR Non-African American 61.7 (>60)
[2018-02-10 19:27] LABS: ABS Basophils 0.1 10^3/ul (0-0.2); ABS Eosinophils 0 10^3/ul (0-0.6); ABS Lymphocytes 1.4 10^3/ul (1.0-4.8); ABS Neutrophils 23.1 10^3/ul (1.5-7.7); ABS Nucleated RBC 0 10^3/ul; Eosinophil % 0.1 % (0-6); Lymphocyte % 5.6 % (25-47); Nucleated Red Blood Cells % 0.1
[2018-02-10] MEDS ORDERED: Lactated Ringers 1000 ml Bag*IV.FLUID IV ONE (19:57)
[2018-02-10] MEDS ORDERED: ceFOXitin 2 GM IVPREMIX* 2 GM/50 ML BAG IVPB ONE (20:11)
[2018-02-10] MEDS ORDERED: Piperacillin/Tazobac ADVAN(*) 3.375 GM in NS 0.9% 100 ML* 100 ML IVPB ONE (20:13)
--- NOTE | 2018-02-10 20:26 | ED ---
Altaf Moreau Tiffany, scribed for Jhoan Price on 02/10/18 at 1748 . Abdominal Pain/Female - HPI Summary HPI Summary: The patient is a 72 y/o F BIBA to [facility] with a chief complaint of abdominal pain since 03:00 today. The patient rates the pain 5/10 in severity. Symptoms aggravated by nothing. Symptoms alleviated by prescribed pain medication. Reports right shoulder pain, constipation and inability to urinate. Denies nausea, vomiting and fever. Diagnosed with pancreatic cancer in March 2016. Is currently on chemotherapy, no radiation. Recently had chemotherapy on 01/30/18. Had second biopsy yesterday for genetic analysis and was discharged home at 18: 00 yesterday. Woke up with abdominal pain at 03:00 this morning that was relieved with Dilaudid. At 15:00 today, abdominal pain returned so patient spoke with Dr. Ross's (oncology) nurse who approved more pain medication and recommended going to the ED. - History of Current Complaint Chief Complaint: EDAbdPain Stated Complaint: ABD PAIN Time Seen by Provider: 02/10/18 17:33 Hx Obtained From: Patient Onset/Duration: Sudden Onset, Lasting Hours - Since 03:00 today, Still Present Timing: Constant Severity Currently: Moderate Pain Intensity: 5 Pain Scale Used: 0-10 Numeric Location: Diffuse Aggravating Factor(s): Nothing Alleviating Factor(s): Medications Associated Signs and Symptoms: Positive: Other: - right shoulder pain, constipation and inability to urinate. Negative: Fever, Nausea, Vomiting Allergies/Adverse Reactions: Allergies Allergy/AdvReac Type Severity Reaction Status Date / Time No Known Allergies Allergy Verified 02/09/18 12:42 Home Medications: Home Medications Bisacodyl EC TAB* [Dulcolax EC TAB*] 1 tab PO DAILY 02/10/18 [History Confirmed 02/10/18] HYDROmorphone TAB* [Dilaudid Tab*] 1 tab PO SEE INSTRUCTIONS PRN 02/10/18 [ History Confirmed 02/10/18] Polyethylene Glycol 3350 [Miralax] 1 packet PO DAILY PRN 02/10/18 [History Confirmed 02/10/18] Sennosides/Docusate Sodium [Senokot S] 1 tab PO BEDTIME PRN 02/10/18 [History Confirmed 02/10/18] PMH/Surg Hx/FS Hx/Imm Hx Previously Healthy: No Endocrine/Hematology History: Denies: Hx Diabetes, 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 Cardiovascular History: Denies: Hx Hypertension GI History: Reports: Other GI Disorders - pancreatic cancer History: Denies: Hx Dialysis, Hx Renal Disease Sensory History: Reports: Hx Contacts or Glasses - glasses to drive Denies: Hx Hearing Aid Opthamlomology History: Reports: Hx Contacts or Glasses - glasses to drive Neurological History: Reports: 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 pancreatic biopsy. tonsillectomy when 6 years old. powerport insertion Hx Anesthesia Reactions: No Infectious Disease History: No Infectious Disease History: Denies: Traveled Outside the [place] in Last 30 Days - Family History Known Family History: Positive: Diabetes - II Negative: Cardiac Disease - Social History Alcohol Use: None Hx Substance Use: No Substance Use Type: Reports: None Hx Tobacco Use: No Smoking Status (MU): Never Smoked Tobacco Review of Systems Negative: Fever Positive: Abdominal Pain, Other - Constipation. Negative: Vomiting, Nausea Positive: other - Inability to urinate Positive: Other - Right shoulder pain All Other Systems Reviewed And Are Negative: Yes Physical Exam - Summary Physical Exam Summary: Appearance: Well appearing, no pain distress Skin: warm, dry, reflects adequate perfusion Head/face: normal Eyes: EOMI, ALEX ENT: normal Neck: supple, non-tender Respiratory: CTA, breath sounds present Cardiovascular: tachycardic Abdomen: diffuse tenderness in abdomen, mild distention, dressing over abdomen Bowel: present Musculoskeletal: normal, strength/ROM intact Neuro: normal, sensory motor intact, A&Ox3 Triage Information Reviewed: Yes Vital Signs On Initial Exam: Initial Vitals Temp Pulse Resp BP Pulse Ox 99.0 F 89 13 143/83 96 02/10/18 17:30 02/10/18 17:30 02/10/18 17:30 02/10/18 17:30 02/10/18 17:30 Vital Signs Reviewed: Yes Diagnostics - Vital Signs Vital Signs Temp Pulse Resp BP Pulse Ox 02/10/18 17:35 86 16 96 02/10/18 17:30 99.0 F 89 13 143/83 96 - Laboratory Lab Results: Lab Results 02/10/18 02/10/18 02/10/18 Range/Units 18:04 18:04 18:04 WBC 25.6 H (3.5-10.8) 10^3/ul RBC 3.10 L (4.0-5.4) 10^6/ul Hgb 9.6 L (12.0-16.0) g/dl Hct 29 L (35-47) % MCV 92 (80-97) fL MCH 31 (27-31) pg MCHC 34 (31-36) g/dl RDW 16 H (10.5-15) % Plt Count 310 (150-450) 10^3/ul MPV 7.2 L (7.4-10.4) um3 Neut % (Auto) 90.2 H (38-83) % Lymph % (Auto) 5.6 L (25-47) % [place] % (Auto) 3.8 (0-7) % Eos % (Auto) 0.1 (0-6) % Baso % (Auto) 0.3 (0-2) % Absolute Neuts (auto) 23.1 H (1.5-7.7) 10^3/ul Absolute Lymphs (auto) 1.4 (1.0-4.8) 10^3/ul Absolute Monos (auto) 1.0 H (0-0.8) 10^3/ul Absolute Eos (auto) 0 (0-0.6) 10^3/ul Absolute Basos (auto) 0.1 (0-0.2) 10^3/ul Absolute Nucleated RBC 0 10^3/ul Nucleated RBC % 0.1 Sodium 137 (133-145) mmol/L Potassium 3.7 (3.5-5.0) mmol/L Chloride 102 (101-111) mmol/L Carbon Dioxide 27 (22-32) mmol/L Anion Gap 8 (2-11) mmol/L BUN 15 (6-24) mg/dL Creatinine 0.90 (0.51-0.95) mg/dL Est GFR ( Amer) 79.4 (>60) Est GFR (Non-Af Amer) 61.7 (>60) BUN/Creatinine Ratio 16.7 (8-20) Glucose 180 H (70-100) mg/dL Lactic Acid 1.3 (0.5-2.0) mmol/L Calcium 9.2 (8.6-10.3) mg/dL Total Bilirubin 0.60 (0.2-1.0) mg/dL AST 22 (13-39) U/L ALT 21 (7-52) U/L Alkaline Phosphatase 278 H (34-104) U/L Troponin I 0.01 (<0.04) ng/mL Total Protein 5.8 L (6.4-8.9) g/dL Albumin 3.4 (3.2-5.2) g/dL Globulin 2.4 (2-4) g/dL Albumin/Globulin Ratio 1.4 (1-3) Lipase 10 L (11.0-82.0) U/L Result Diagrams: 02/10/18 18:04 02/10/18 18:04 Lab Statement: Any lab studies that have been ordered have been reviewed, and results considered in the medical decision making process. Abdominal Pain Fem Course/Dx - Course Course Of Treatment: 72 y/o F c/o abdominal pain s/p biopsy yesterday. Dr. Sorensen (surgery) consulted on the case and agrees to admit patient. Patient agreeable to plan. - Diagnoses Differential Diagnosis: Positive: Bowel Obstruction, Diverticulitis, Urinary Tract Infection, Other - bowel perforation Provider Diagnoses: Acute abdomen, Pancreatic cancer - Provider Notifications Discussed Care Of Patient With: José Sorensen Time Discussed With Above Provider: 18:07 Instructed by Provider To: Other - Dr. Sorensen (surgery) advised to order labs and agreed to see the patient. Discharge - Sign-Out/Discharge Documenting (check all that apply): Discharge - Discharge Plan Condition: Fair Disposition: ADMITTED TO [facility] Referrals: No Primary Care Phys,NOPCP [Primary Care Provider] - - Billing Disposition and Condition Condition: FAIR Disposition: [facility] The documentation as recorded by the Altaf garcia Tiffany accurately reflects the service I personally performed and the decisions made by Albert cr Emmanuel.
[2018-02-10] MEDS ORDERED: fentaNYL* 50 MCG/ML 2 ML VIAL (100 MCG VIAL) ONE ×2 (20:49→21:14)
[2018-02-10] MEDS ORDERED: Sevoflurane* 1 BTL ONE (20:58)
[2018-02-10] MEDS ORDERED: Dexamethasone IV* 4 MG/ML 1 ML (4 MG) ONE (21:00)
[2018-02-10] MEDS ORDERED: Ondansetron INJ* 2 MG/ML VIAL ONE (21:00)
[2018-02-10] MEDS ORDERED: Lidocaine 2% PF * 5 ML VIAL ONE (21:00)
[2018-02-10] MEDS ORDERED: Succinylcholine* 20 MG/ML 10 ML VIAL ONE (21:00)
[2018-02-10] MEDS ORDERED: Propofol* 10 MG/ML 20 ML BTL IV PUSH ONE (21:00)
[2018-02-10] MEDS ORDERED: EPHEDrine (Pressors)* 50 MG/ML VIAL ONE (21:05)
[2018-02-10] MEDS ORDERED: Etomidate* 2 MG/ML 10 ML VIAL ONE (21:06)
[2018-02-10] MEDS ORDERED: Cisatracurium* 2 MG/ML MDV 5 ML ONE (22:08)
[2018-02-10] MEDS ORDERED: HYDROmorphone INJ* 2 MG/ML CARPUJECT SYRINGE IV PRN ×2 (22:56→23:03)
[2018-02-10] MEDS ORDERED: Ondansetron INJ* 2 MG/ML VIAL IV PRN (22:56)
[2018-02-10] MEDS ORDERED: Ibuprofen TAB* 600 MG PO PRN (22:56)
[2018-02-10] MEDS ORDERED: Spironolactone TAB* 25 MG PO PRN (23:01)
[2018-02-10] MEDS ORDERED: Omeprazole CAP* 20 MG PO PRN (23:01)
[2018-02-10] MEDS ORDERED: Metoclopramide IV* 5 MG/ML 2 ML VIAL IV PRN (23:09)
[2018-02-10] MEDS ORDERED: PROCHLORPERAZINE INJ 5 MG/ML 2 ML VIAL IV PRN (23:09)
[2018-02-10] MEDS ORDERED: Naloxone* 0.4 MG/ML 1 ML VIAL IV PRN (23:09)
[2018-02-10] MEDS ORDERED: HYDROmorphone INJ* 1 MG/ML CARPUJECT SYRINGE IV PRN (23:09)
[2018-02-10] MEDS ORDERED: fentaNYL* 50 MCG/ML 2 ML VIAL (100 MCG VIAL) IV PRN (23:09)
--- NOTE | 2018-02-11 05:21 | OP ---
CC: Dr. Sorensen; Dr. Mulugeta Ross OPERATIVE REPORT: DATE OF OPERATION: 02/10/18 DATE OF : 47 SURGEON: José Sorensen MD PATIENT TRANSPORT OFFICER: Dr. Tilley. ANESTHESIOLOGIST: Dr. Jones. ANESTHESIA: General anesthetic, local infiltration. PRE-OP DIAGNOSIS: Abdominal pain. POST-OP DIAGNOSIS: Abdominal pain secondary to bladder perforation. OPERATIVE PROCEDURE: Diagnostic laparoscopy with repair of bladder perforation. DESCRIPTION OF PROCEDURE: The patient was supine on the operative table. After adequate general anesthetic, compression stockings, Celine Hugger warmer, and intravenous antibiotics, the abdomen was prepped with antiseptic, draped in a sterile fashion. Local infiltrative anesthesia was administered and the umbilical incision was reentered and insufflation was carried out with carbon oxide. Additional cannulae were administered through the previous sites in the left lower quadrant and left mid abdomen. Ultimately, a right upper quadrant 5- mm cannula was placed as well. Inspection of the small bowel was normal. The omental biopsy site was as expected. The pancreatic biopsy site as expected. However, at the site of the peritoneal biopsy down in the pelvis, a bladder injury was identified, it appeared to be at site of some cauterization and free fluid was suctioned and irrigated from the area and the bladder injury was closed with generous full- thickness bites of running 2-0 Vicryl. This created a nice snug closure. Fahad-Arredondo drain was then placed down into the pelvis and brought out through the left lower quadrant stab wound, sutured to the skin with 3-0 Prolene. The operative field was irrigated again and suctioned out and the pneumoperitoneum was allowed to escape. The umbilical fascia was closed with 0 Vicryl and skin with 4-0 Biosyn in all cases, followed by Steri-Strips. A Kraus catheter was placed. She was brought to Recovery in good condition. Drain is Fahad-Arredondo. Sponge and instrument counts correct. Estimated blood loss is 30 mL. [id number]/[facility] #: [id number] [facility]
[2018-02-11 06:02] LABS: Hematocrit 26 % (35-47); Hemoglobin 8.7 g/dl (12.0-16.0); Mean Corpuscular HGB Conc 34 g/dl (31-36); Mean Corpuscular Hemoglobin 31 pg (27-31); Mean Corpuscular Volume 92 fL (80-97); Mean Platelet Volume 6.9 um3 (7.4-10.4); Platelet Count 272 10^3/ul (150-450); Red Blood Count 2.81 10^6/ul (4.0-5.4); Red Cell Distribution Width 16 % (10.5-15); White Blood Count 20.9 10^3/ul (3.5-10.8)
[2018-02-11 06:19] LABS: EGFR Non-African American 71.7 (>60)
[2018-02-11 06:39] LABS: ABS Basophils 0 10^3/ul (0-0.2); ABS Eosinophils 0 10^3/ul (0-0.6); ABS Lymphocytes 0.7 10^3/ul (1.0-4.8); ABS Monocytes 0.3 10^3/ul (0-0.8); ABS Neutrophils 19.8 10^3/ul (1.5-7.7); ABS Nucleated RBC 0 10^3/ul; Eosinophil % 0 % (0-6); Lymphocyte % 3.5 % (25-47); Nucleated Red Blood Cells % 0
[2018-02-11] MEDS: Docusate CAP* 100 MG PO SCH (08:48)
[2018-02-11] MEDS: oxyCODONE/Acetamin 5/325 MG* TAB PO PRN ×2 (11:36→21:15)
[2018-02-11] MEDS: Spironolactone TAB* 25 MG PO PRN (12:36)
[2018-02-12 05:34] LABS: ABS Basophils 0 10^3/ul (0-0.2); ABS Eosinophils 0 10^3/ul (0-0.6); ABS Lymphocytes 2.1 10^3/ul (1.0-4.8); ABS Monocytes 0.8 10^3/ul (0-0.8); ABS Nucleated RBC 0 10^3/ul; Eosinophil % 0.3 % (0-6); Hematocrit 23 % (35-47); Hemoglobin 7.6 g/dl (12.0-16.0); Lymphocyte % 19.5 % (25-47); Mean Corpuscular HGB Conc 33 g/dl (31-36); Mean Corpuscular Hemoglobin 31 pg (27-31); Mean Corpuscular Volume 94 fL (80-97); Mean Platelet Volume 6.9 um3 (7.4-10.4); Nucleated Red Blood Cells % 0.1; Platelet Count 257 10^3/ul (150-450); Red Blood Count 2.45 10^6/ul (4.0-5.4); Red Cell Distribution Width 16 % (10.5-15); White Blood Count 10.9 10^3/ul (3.5-10.8)
[2018-02-12 05:53] LABS: EGFR Non-African American 78.6 (>60)
[2018-02-12] MEDS: Docusate CAP* 100 MG PO SCH (08:30)
[2018-02-12] MEDS: Spironolactone TAB* 25 MG PO PRN (08:31)
--- NOTE | 2018-02-12 10:21 | PN ---
Progress Note - Progress Note Date of Service: 02/12/18 SOAP: Subjective: Doing much better-still with some pain but she wants to avoid narcotics. Passing a small amount of flatus Not taking a large amount of PO Objective: Temp Pulse Resp BP Pulse Ox 97.9 F 80 16 115/60 96 02/12/18 07:47 02/12/18 07:47 02/12/18 08:00 02/12/18 07:47 02/12/18 07:47 Intake & Output 02/10/18 02/11/18 02/12/18 02/13/18 06:59 06:59 06:59 06:59 Intake Total 1600 610 Output Total 465 1455 Balance 1135 -845 Weight 143 lb Intake: IV Fluids 1550 LR 1200 NS 100ML, Zosyn 3.375G 100 Oral 50 610 Output: CLOVIS #1 30 155 Vinson 405 1300 Estimated Blood Loss 30 PEX: Comfortable Lungs are clear Abd is soft and slightly distended. Dressing intact, incisions are clean and dry. CLOVIS with reddish serosanguinous fluid in bulb Vinson catheter with clear yellow urine in bag. Laboratory Results - last 24 hr 02/12/18 02/12/18 05:12 05:12 WBC 10.9 H RBC 2.45 L Hgb 7.6 L Hct 23 L MCV 94 MCH 31 MCHC 33 RDW 16 H Plt Count 257 MPV 6.9 L Neut % (Auto) 73.1 Lymph % (Auto) 19.5 L [place] % (Auto) 7.0 Eos % (Auto) 0.3 Baso % (Auto) 0.1 Absolute Neuts (auto) 8.0 H Absolute Lymphs (auto) 2.1 Absolute Monos (auto) 0.8 Absolute Eos (auto) 0 Absolute Basos (auto) 0 Absolute Nucleated RBC 0 Nucleated RBC % 0.1 Sodium 137 Potassium 4.0 Chloride 104 Carbon Dioxide 30 Anion Gap 3 BUN 13 Creatinine 0.73 Est GFR ( Amer) 101.1 Est GFR (Non-Af Amer) 78.6 BUN/Creatinine Ratio 17.8 Glucose 148 H Calcium 8.5 L Assessment: POS # 2 s/p laparoscopic repair of bladder injury after diagnostic laparoscopy on 02/10 Plan: She does not feel ready for discharge today-will observe and increase po and activity CLOVIS still with significant output-will leave in Continue vinson drainage All discussed with patient and .
[2018-02-12] MEDS: oxyCODONE/Acetamin 5/325 MG* TAB PO PRN (13:43)
[2018-02-13] MEDS: oxyCODONE/Acetamin 5/325 MG* TAB PO PRN (01:33)
[2018-02-13 05:50] LABS: Hematocrit 23 % (35-47); Hemoglobin 7.7 g/dl (12.0-16.0); Mean Corpuscular HGB Conc 33 g/dl (31-36); Mean Corpuscular Hemoglobin 31 pg (27-31); Mean Corpuscular Volume 95 fL (80-97); Mean Platelet Volume 6.6 um3 (7.4-10.4); Platelet Count 268 10^3/ul (150-450); Red Blood Count 2.46 10^6/ul (4.0-5.4); Red Cell Distribution Width 16 % (10.5-15); White Blood Count 9.5 10^3/ul (3.5-10.8)
[2018-02-13 07:36] VITALS: BP 121/63
[2018-02-13] MEDS: Docusate CAP* 100 MG PO SCH (08:42)
[2018-02-13] MEDS ORDERED: Magnesium Hydroxide LIQ* 30 ML UDC PO ONE (10:36)
--- NOTE | 2018-02-13 15:23 | DS ---
CC: Dr. Sorensen; Mulugeta Ross MD * DISCHARGE SUMMARY: DATE OF ADMISSION: 02/10/18 DATE OF DISCHARGE: 02/13/18 PRINCIPAL ADMITTING DIAGNOSES: Bladder injury, status post laparoscopic biopsy. OPERATION ON THIS ADMISSION: Laparoscopy and repair of bladder injury. SURGEON: Dr. Sorensen. COMPLICATIONS ON THIS ADMISSION: None. HOSPITAL COURSE: The patient came to the hospital after having undergone a laparoscopic biopsy of pancreatic carcinoma. She had elevated white blood count and intense abdominal pain and was taken to the operating room for a diagnostic laparoscopy that was done immediately that evening and she was found to have bladder injury at the site of a pelvic biopsy. This was repaired laparoscopically using sutures and a CLOVIS drain was left in the abdomen and a Kraus catheter in the bladder. She had a relatively uneventful postoperative recovery with gradual improvement in pain control and appetite and she was able to ambulate and was tolerating oral intake and passing flatus and was discharged home with instructions with the drains in place. She will follow up in the office, has an appointment on 02/15/18 and I have also discussed the case with Dr. Verma who will be coordinating her oncology care. [id number]/[facility] #: [id number] [facility]
== END 2018-02-13 12:20 | disposition home or self-care (01) | DRG 908 ==
LOC: ED 17:25 → MED 19:19 → UNDOADMOB 19:19 → OR 20:31 → SSU 02-11 00:26 → INTOOBSV 02-12 14:57 → OBSVTOIN 02-12 14:57
PROVIDERS: ADMIT Surgery; ATTEND Surgery
PROC: 0TQB4ZZ Repair Bladder, Percutaneous Endoscopic Approach (ICD-10-PCS; principal; 2018-02-10 20:36)
DX: N99.72 Accidental puncture and laceration of a genitourinary system organ or structure during other procedure (principal); C25.9 Malignant neoplasm of pancreas, unspecified; Z79.899 Other long term (current) drug therapy; Z83.3 Family history of diabetes mellitus
CPT/HCPCS: 36415; 80048; 80053; 83605; 83690; 84484; 85025; 85027; 87040; 88305; 88307; 88331; 99284; A9270-GY; G0378; J0330; J0690; J0694; J0780; J1100; J1170; J1642; J2250; J2405; J2543; J2704; J2710; J3010

== ENCOUNTER 2018-02-18 14:59 | Emergency (ER) | payer MEDICARE, OTHER ==
--- OUTSIDE RECORDS SUMMARY | 2018-02-18 15:28 | XMS REPORT ---
:1945 External Reference #:[id number] Author Organization [employer] Address [address] [address] Phone [phone] Care Team Providers Name Role Phone Mulugeta Ross MD Primary Care Physician Unavailable Payers Type Date Identification Numbers Payment Provider Subscriber Medicare Primary Policy Number: [id number] Medicare Cesilia Neno PayID: [id number] [address] [place] [address] [facility] Policy Number: [id number] [employer] Cesilia Oliveira PayID: [id number] [address] [place] [address] Problems Description No Information Social History Type [...] Unknown /0000 DR every day as needed Spironolactone/Hy Active Tablets 25-25mg 1 by mouth Unknown drochlorothiazide / every day Tylenol Active Capsules 325mg 2 tablets every 4 hours as needed for pain Benadryl Allergy Active Tablets 25mg 1/2 tab at bedtime as needed Imodium A-D Hx Capsules 2mg as directed Ondansetron Hx Tablets 4mg dissolve one Dispers tablet orally every 6 hours as needed for nausea. Prochlorperazine Hx Tablets 5mg 1 by mouth Unknown Maleate every 8 h as needed nausea Hydromorphone HCL Hx Tablets 4mg take 11/22 To 1 Tablet by mouth every 4 hours if needed Vital Signs Date Vital Result Comment 02/15/2018 Heart Rate 90 /min BP Systolic Sitting 118 mmHg BP Diastolic Sitting 76 mmHg Respiratory Rate 18 /min Body Temperature 96.9 F 02/08/2018 Height 62.5 inches 5'2.50" Weight 138.00 lb Heart Rate 80 /min BP Systolic 102 mmHg BP Diastolic 64 mmHg Respiratory Rate 16 /min Body Temperature 97.5 F BMI (Body Mass Index) 24.8 kg/m2 Results Test Date Test Result H/L Range Note Laboratory test 02/09/2018 Surgical Pathology SEE RESULT BELOW 1 finding 1 SEE RESULT BELOW Name: CESILIA OLIVEIRA : [address]: José Sorensen MD Acct: [id number] Unit: [id number] AGE: 72 Location: OR Re02/09/18 SEX: F Status: ELVIA GUTIERRZE SPEC: [id number] KENDAL: 02/09/[address]: José Sorensen MD REQ: [id number] RECD: 02/09/18 STATUS: SOUT _ ORDERED: FS 1ST PER SPEC/3, LEVEL 4/2, LEVEL 5 FINAL DIAGNOSIS 1. Peritoneum, biopsy: -- Benign fibroadipose tissue with focal acellular mucin deposition. -- No evidence of viable malignant cells. 2. Omentum, biopsy: -- Benign fibroadipose tissue with no evidence of metastatic carcinoma. 3. Pancreas, biopsy: -- Invasive mucinous adenocarcinoma, well-differentiated. PATHOLOGY SURGICAL CONSULT Frozen section (FS)/Touch Prep (TP)/Gross Consult (GC) FS1) Peritoneal, biopsy: a. Fibroadipose tissue, skeletal muscle. (EP) b. No viable tumor seen. (EP) Findings discussed with Dr Sorensen at 1440 on 02/09/18. FS3) Pancreas, biopsy: Mucinous cystic neoplasm. (EP) Attempt made to discussed with Dr Sorensen at 1502 on 02/09/18 PRE-OPERATIVE DIAGNOSIS Malignant neoplasm of head of pancreas. CONTINUED ON NEXT PAGE DEPARTMENT OF PATHOLOGY, [address] [place] [address] Armando Juarez M.D. Director [facility] # [id number] RUN DATE: 02/10/18 [facility] LAB LIVE PAGE 2 Patient: CESILIA OLIVEIRA Jessy [id number] (Continued) GROSS DESCRIPTION (Continued) GROSS DESCRIPTION 1. The specimen is received fresh labeled, Peritoneal Biopsy, and consists of a 3.2 x 1.9 by up to 1.0 cm yellow pink irregular adipose tissue fragment admixed with scant leon-pink fibrous tissue. A access services representative section is submitted for frozen section microscopy. The frozen section residue and the remaining specimen are entirely submitted in cassettes FSA and B and C. 2. The specimen is received fresh labeled, Omental Biopsy, and consists of a 5.2 x 2.1 x 0.6 cm yellow pink irregular adipose tissue fragments admixed with scant leon- pink fibrous tissue. A access services representative section is submitted for frozen section microscopy. The frozen section residue and the remaining specimen are entirely submitted in cassettes FSA and B and C. 3. The specimen is received fresh labeled, Pancreas Biopsy, and consists of a 2.7 x 2.0 x 0.4 cm aggregate of leon-pink irregular soft tissue fragments admixed with blood-tinged mucus. A access services representative section is submitted for frozen section microscopy. The frozen section residue and the remaining specimen are entirely submitted in cassettes FSA and B. Signed (signature on file) Priscila Romano MD 1159 END OF REPORT DEPARTMENT OF PATHOLOGY, [address] [place] [address] Armando Juarez M.D. Director [facility] # [id number] Procedures Date CPT Code Description Status 02/09/2018 31403 Laparoscopy/Peritoneoscopy With Biopsy (Single Or Completed Multiple) 02/09/2018 38121 Laparoscopy/Peritoneoscopy With Biopsy (Single Or Completed Multiple) 09/09/2009 38612 Biopsy Cervix, Single Or Multiple, Or Local Excision Of Completed Lesion 04/11/2009 44373 EKG Tracing & Interpretation Completed Encounters Type Date Location Provider CPT E/M Dx Office Visit 02/08/2018 [facility] Sorensen M.D. 746[address] C25.0 10:00a [facility] Office Visit 01/16/2018 [facility] [place], [address] D70.9 9:07a [facility] R50.81 C25.9 Office Visit 11/07/2016 7:37a [facility] [place], [address] J18.1 [facility] D61.810 C25.9 Office Visit 04/11/2009 3:00p DO Not Use [facility] [place], [address] V72.31 [facility] Plan of Care Future Appointment(s):02/20/2018 10:00 am - José Sorensen M.D. at [facility]02/15/2018 - José Sorensen M.D.C25.0 Malignant neoplasm of head of pancreasFollow up:tuesday
[2018-02-18 17:03] VITALS: BP 126/69
--- NOTE | 2018-02-18 18:47 | ED ---
Dewey Moreau Natalie, scribed for Monster Cabello MD on 02/18/18 at 1552 . GI/ HPI - HPI Summary HPI Summary: The pt is a 72 y/o F presenting to the ED c/o catheter not working starting three hours ago. She had noticed that there wasn't any urine being collected in the bag, there was sediment in the tubing, and it seems that there is urine backed up in the beginning of the tubing. When she was sitting in triage, there was urine flow to the bag. She states that she hasn't drank a lot today, and she doesn't feel like she has to urinate. She denies any pain associated with the catheter. - History of Current Complaint Chief Complaint: EDUrogenitalProblems Time Seen by Provider: 02/18/18 15:23 Stated Complaint: CHECK CATHER Hx Obtained From: Patient Onset/Duration: Started Hours Ago, Still Present Timing: Constant Severity: Mild Current Severity: None Pain Intensity: 0 Associated Signs and Symptoms: Positive: Other: - decreased fluid intake, no associated pain - Additional Pertinent History Primary Care Physician: [id number] - Allergy/Home Medications Allergies/Adverse Reactions: Allergies Allergy/AdvReac Type Severity Reaction Status Date / Time No Known Allergies Allergy Verified 02/18/18 15:09 PMH/Surg Hx/FS Hx/Imm Hx Endocrine/Hematology History: Denies: Hx Diabetes, 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 Cardiovascular History: Denies: Hx Hypertension GI History: Reports: Other GI Disorders - pancreatic cancer History: Denies: Hx Dialysis, Hx Renal Disease Musculoskeletal History: Reports: Hx Arthritis - fingers and toes Sensory History: Reports: Hx Contacts or Glasses - glasses to drive Denies: Hx Hearing Aid Opthamlomology History: Reports: Hx Contacts or Glasses - glasses to drive Neurological History: Reports: 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 pancreatic biopsy. tonsillectomy when 6 years old. powerport insertion Hx Anesthesia Reactions: No Infectious Disease History: No Infectious Disease History: Denies: Traveled Outside the [place] in Last 30 Days - Family History Known Family History: Positive: Diabetes - II Negative: Cardiac Disease - Social History Alcohol Use: None Hx Substance Use: No Substance Use Type: Reports: None Hx Tobacco Use: No Smoking Status (MU): Never Smoked Tobacco Review of Systems Genitourinary: Other - catheter not working Neurological: Other - decrease in fluid intake All Other Systems Reviewed And Are Negative: Yes Physical Exam Triage Information Reviewed: Yes Vital Signs On Initial Exam: Initial Vitals Temp Pulse Resp BP Pulse Ox 97.9 F 95 14 136/81 97 02/18/18 15:10 02/18/18 15:10 02/18/18 15:10 02/18/18 15:10 02/18/18 15:10 Vital Signs Reviewed: Yes Appearance: Positive: Well-Appearing, No Pain Distress Skin: Positive: Warm, Skin Color Reflects Adequate Perfusion, Dry Head/Face: Positive: Normal Head/Face Inspection Eyes: Positive: EOMI, ALEX ENT: Positive: Normal ENT inspection Neck: Positive: Supple, Nontender Respiratory/Lung Sounds: Positive: Clear to Auscultation, Breath Sounds Present Cardiovascular: Positive: RRR Abdomen Description: Positive: Nontender, Soft Bowel Sounds: Positive: Present Musculoskeletal: Positive: Normal, Strength/ROM Intact Neurological: Positive: Normal, Sensory/Motor Intact, Alert, Oriented to Person Place, Time Psychiatric: Positive: Affect/Mood Appropriate Diagnostics - Vital Signs Vital Signs Temp Pulse Resp BP Pulse Ox 02/18/18 15:10 97.9 F 95 14 136/81 97 - Laboratory Lab Statement: Any lab studies that have been ordered have been reviewed, and results considered in the medical decision making process. GIGU Course/Dx - Course Course Of Treatment: Medications reviewed. BP noted and advised to follow up with PCP. BLADDER SCAN SHOWED NO URINE INITIALLY. AFTER THE PATIENT DRANK WATER, THE PATIENT STARTED URINATING. - Diagnoses Provider Diagnoses: Elevated BP without diagnosis of hypertension, Dehydration Discharge - Sign-Out/Discharge Documenting (check all that apply): Discharge - Discharge Plan Condition: Stable Disposition: HOME Discharge Disposition Comment: The pt will be discharged home under stable conditions. Patient Education Materials: Dehydration (ED), Kraus Catheter Placement and Care (ED) Referrals: No Primary Care Phys,NOPCP [Primary Care Provider] - Additional Instructions: FOLLOW UP WITH YOUR DOCTOR. RETURN TO THE EMERGENCY DEPARTMENT FOR ANY WORSENING OF YOUR CONDITION OR QUESTIONS OR CONCERNS. YOUR BLOOD PRESSURE WAS ELEVATED TODAY; FOLLOW UP WITH YOUR PRIMARY CARE DOCTOR WITHIN ONE WEEK. - Billing Disposition and Condition Condition: STABLE Disposition: HOME The documentation as recorded by the Dewey garcia Natalie accurately reflects the service I personally performed and the decisions made by me, Monster Cabello MD.
== END 2018-02-18 17:02 | disposition home or self-care (01) ==
LOC: ED 14:59
DX: E86.0 Dehydration (principal); R03.0 Elevated blood-pressure reading, without diagnosis of hypertension
CPT/HCPCS: 99282